=== PATIENT | male | born 1990 | race Caucasian/White ===

== ENCOUNTER 2016-08-30 20:34 | Inpatient (IN) | payer OTHER ==
[~2016-08-30] VITALS: Ht 180.3 cm; Wt 70.3 kg
--- NOTE | ~2016-08-30 | HP ---
Unit #: [id number] #: [id number] Patient: NARENDRA RODRIGUEZ [id number] [place] [address] [id number] MR#: [id number] NAME: NARENDRA RODRIGUEZ ROOM: P214 Age: 26 Sex: M Admission Date: 08/30/2016 : 1990 Attending Physician: Daniel Prescott M.D. Admitting Physician: Daniel Prescott M.D. Primary Care Physician: Primary Care Physician No HISTORY AND PHYSICAL HISTORY OF PRESENT ILLNESS Narendra is a 26-year-old male admitted on 08/30/[address] [place] [address] for detox from meth and heroin. PAST MEDICAL HISTORY None. PAST SURGICAL HISTORY None. ALLERGIES None. SOCIAL HISTORY Smokes 1 pack of cigarettes daily. Denies illegal drug use. Does report daily use of meth and heroin. He is currently single and homeless. FAMILY HISTORY Noncontributory. REVIEW OF SYSTEMS CONSTITUTIONAL: No fever or chills. HEENT: Denies any sore throat, ear pain or runny nose. CARDIOVASCULAR: Denies chest pain, irregular heart rhythm or palpitations. CHEST: Denies shortness of breath or cough. No hemoptysis. GASTROINTESTINAL: Denies nausea, vomiting, diarrhea or chronic constipation. ENDOCRINE: Denies history of increased thirst or urination. No recent significant weight loss or gain. GENITOURINARY: Denies dysuria, frequency, or hematuria. SKIN: Denies any rashes. HEMATOLOGIC: Denies history of increased bleeding or bruising. MUSCULOSKELETAL: Denies any hot, swollen joints. No generalized muscle pain. NEUROLOGIC: Denies problems with vision or speech. No frequent, severe headaches. No numbness, tingling or weakness in any extremities. Denies loss of bladder or bowel control. CURRENT MEDICATIONS None. PHYSICAL EXAMINATION GENERAL: Alert, oriented, in no acute distress. Unit #: [id number] #: [id number] Patient: NARENDRA RODRIGUEZ VITAL SIGNS: Blood pressure 117/79, heart rate 74, temperature 97.9. HEIGHT: 5 feet 11. WEIGHT: 155 pounds. SKIN: Warm and dry without rash or lesion. HEENT: Normocephalic. TMs not viewed. Oral and nasal passages clear. Conjunctivae clear. PERRLA. EOMs intact. NECK: Supple without lymphadenopathy or thyromegaly. HEART: Regular rate and rhythm without murmur. LUNGS: Clear. ABDOMEN: Soft, nontender, without masses or hepatosplenomegaly. : Not done. EXTREMITIES: No evidence of cyanosis, clubbing or edema. Moves all without focal deficit. NEUROLOGICAL: Grossly within normal limits. Cranial Nerves: II: Visual smith are intact. III, IV AND : Extraocular movements are intact. Pupils are equal, round and reactive to light. V: Facial sensation is grossly normal. VII: Facial movements and expression are normal. VIII: Auditory acuity grossly intact. IX, X: Uvula is midline. Phonation is normal. XI: Patient shrugs shoulders and turns head normally. XII: Tongue protrudes in the midline. Sensory and Motor Function: Sensory and motor sensation is grossly normal. Motor: moves all extremities well. Coordination: Gait is normal. Deep Tendon Reflexes: Intact. IMPRESSION Psychiatric admission. RECOMMENDATIONS PSYCHIATRIC: Per psychiatrist. MEDICAL: No contraindication to participate in facility's activities. MEDICAL PROGNOSIS Good. MEDICAL CONDITION Stable. Dictated by... Fay García/julienne TD: 08/31/2016 22:59 JOB #: [id number] Unit #: [id number] #: [id number] Patient: NARENDRA RODRIGUEZ HISTORY AND PHYSICAL Page 1 of 1 X INGRID MIRANDA APRN X HISTORY AND PHYSICAL
--- NOTE | ~2016-08-30 | PA ---
Unit #: [id number] #: [id number] Patient: NARENDRA RODRIGUEZ [id number] [facility] [address] [place] [address] [id number] I MR#: [id number] NAME: NARENDRA RODRIGUEZ ROOM: P214 Age: 26 Sex: M Admission Date: 08/30/2016 : 1990 Date of Assessment: 08/31/2016 Attending Physician: Daniel Prescott M.D. Admitting Physician: Daniel Prescott M.D. Primary Care Physician: Primary Care Physician No PSYCHIATRIC ASSESSMENT IDENTIFYING INFORMATION The patient is a 26-year-old white male admitted to the [address] [place] [address] Unit with increasing abuse of heroin and methamphetamine. CHIEF COMPLAINT "I'm at the end of my road." INFORMANT Patient, reliability is good. HISTORY OF PRESENT ILLNESS The patient is a 26-year-old white male with a history of opioid and methamphetamine use disorder. The patient reports that he relapsed in February of this year. Since that time, he has sought treatment at various facilities but has been unable to maintain sobriety. He states that he is "at the end of his road." He denies intravenous use. He denies use of other psychoactive substances. He denies current suicidal or homicidal ideation and denies any psychotic symptoms. He denies any symptoms of complicated withdrawal. He appears to be in moderate physical discomfort related to opioid withdrawal during today's interview. PAST PSYCHIATRIC HISTORY As discussed above. PAST MEDICAL HISTORY Noncontributory. MEDICATIONS None. ALLERGIES None. FAMILY HISTORY Noncontributory. SOCIAL HISTORY The patient is currently homeless. He is a high school graduate. He apparently had worked at [employer] but was fired from that job secondary to his substance use. MENTAL STATUS EXAMINATION Examination at this time reveals the patient to be a well-developed Unit #: [id number] #: [id number] Patient: NARENDRA RODRIGUEZ well-nourished white male appearing stated age. She is in no apparent physical distress at the time of examination. He is awake, alert, and oriented in all spheres. His mood is dysphoric. His affect constricted. Speech is generally well coherent. There are no gross deficit in memory or cognition noted. Intelligence is judged to be in the average range based on fund of knowledge. The patient is cooperative throughout the interview. He is currently endorsing no suicidal or homicidal ideation and denies any psychotic symptoms. His judgment and insight appear to be reasonably intact. ASSETS AND LIABILITIES The patient's assets are to be assessed. Liabilities: Lack of resources. DIAGNOSTIC IMPRESSION 1. Methamphetamine use disorder. 2. Opioid use disorder. TREATMENT PLAN The patient remains hospitalized for safety and stabilization. Routine detoxification protocol for opioids has been initiated. I will ask the patient's social services coordinator to see him regarding post-discharge treatment options. ESTIMATED LENGTH OF STAY 3 to 5 days. Dictated by... Daniel Prescott M.D. Terri TD: 08/31/2016 14:22 JOB #: [id number] PSYCHIATRIC ASSESSMENT Page 1 of 1 X Daniel Prescott MD X PSYCHIATRIC ASSESSMENT
--- NOTE | ~2016-08-30 | A ---
[facility] Nutrition Therapy DATE: 09/01/16 Patient: NARENDRA RODRIGUEZ Physician: ARIE Address: NO PERMANENT ADDRESS Room/Bed: [address], Zip: [place] [address] Admit Date: 08/30/16 Date of : [birth year] Height: 5 11 Weight: [phone] NUTRITIONAL ASSESSMENT: REASON: 1 point malnutrition risk score re: unintentional weight loss Admitting dx: 26 y/o male admitted for heroin/meth detox PMH: 1 ppd smoker, otherwise nothing significant Anthropometrics: Ht: 70", wt: 155 lbs, BMI: 21 (normal) Past weight 148 lbs 02/03/12 Labs: WNL Meds: Thiamine, folic acid, MVI, loperamide, phenergan/zofran, milk of mg, mag-al Assessment: Chart reviewed, events noted. See admitting dx and PMH as stated above. Pt undergoing detox from heroin/meth, is currently homeless. He is on a regular diet, MD has ordered large portion entree however this is not noted in the cardex- will add to cardex and notify [facility] to send. He is of normal weight, reports 20 lb weight loss in "months" but has had a good appetite/PO intake. Weight loss is likely due to drug abuse. See RD recs below. Dx: Unintentional weight loss r/t drug abuse AEB 1 point malnutrition risk score, pt reported 20lb weight loss in months. Intervention: Large entree Monitoring, Evaluation and Goals: 1. PO intake > 50% of meals. 2. Prevent further unintentional weight loss. Monitor: Per protocol, criteria to determine if above goals met Recommendations: 1. Continue regular diet, will send large portion entree with lunch and dinner. Encourage PO intake. 2. Please weigh q 3 days for monitoring purposes, pt reports weight loss. 3. Continue vitamins. [facility] Nutrition Therapy DATE: 09/01/16 Patient: NARENDRA RODRIGUEZ Physician: ARIE Address: NO PERMANENT ADDRESS Room/Bed: [address], Zip: [place] [address] Admit Date: 08/30/16 Date of : [birth year] Height: 5 11 Weight: [phone] 4. Please consult dietitian with any further nutritional needs. Mild nutrition risk Respectfully, Kristina Maddox RD, LD [facility] cc: client file
--- NOTE | ~2016-08-30 | DS ---
Unit #: [id number] #: [id number] Patient: NARENDRA RODRIGUEZ [id number] [facility] [address] [place] [address] [id number] MR#: [id number] NAME: NARENDRA RODRIGUEZ ROOM: [facility] Age: 26 Sex: M Admission Date: 08/30/2016 : 1990 Discharge Date: 09/01/2016 Attending Physician: Daniel Prescott M.D. Primary Care Physician: Primary Care Physician No DISCHARGE SUMMARY REASON FOR ADMISSION The patient is a 26-year-old white male, admitted with a history of opioid and methamphetamine abuse. HOSPITAL COURSE The patient was admitted to the [address] [place] [address] unit and placed on routine detoxification protocol for opioids. His stay in the hospital was a brief and uneventful one. He had little in the way of signs or symptoms of withdrawal. By 09/01/2016, he requested discharge and it was so ordered. FINAL DIAGNOSES Methamphetamine use disorder; opioid use disorder. DISPOSITION ON DISCHARGE The patient is discharged on no psychotropic or other medications. FOLLOWUP Followup will take place through the auspices of community mental health resources. PROGNOSIS The patient's prognosis is considered fair. Dictated by... Daniel Prescott M.D. CB/ellen TD: 09/01/2016 16:34 JOB #: [id number] DISCHARGE SUMMARY Page 1 of 1 X Daniel Prescott MD X DISCHARGE SUMMARY
[2016-08-31 09:39] LABS: BASOPHIL# 0.1 X10e3 (0-0.3); BASOPHIL% 0.7 % (0-2.5); EOSINOPHIL# 0.6 X10e3 (0-0.7); HEMATOCRIT 45.2 % (38.0-50.0); HEMOGLOBIN 14.8 gm/dL (13.0-16.0); LYMPHOCYTE# 3.8 X10e3 (1.0-3.5); LYMPHOCYTE% 47.2 % (17.0-45.0); MEAN CELL VOLUME 91.1 FL (83-96); MEAN CORPUSCULAR HEMOGLOBIN 29.9 PG (28-34); MEAN CORPUSCULAR HGB CONC 32.8 g/dL (30-36); MEAN PLATELET VOLUME 8.4 FL (6.5-11.5); MONOCYTE# 0.4 X10e3 (0-1.0); MONOCYTE% 5.6 % (3.0-12.0); NEUTROPHIL# 3.2 X10e3 (1.5-7.1); NEUTROPHIL% 39.5 % (40-75); PLATELET COUNT 265 X10e3 (140-420); RED BLOOD COUNT 4.95 X10e (3.90-5.60); RED CELL DISTRIBUTION WIDTH 13.6 % (11.0-15.5)
[2016-08-31 09:53] LABS: DIFF IND NO
[2016-08-31 09:57] LABS: ALBUMIN SERUM 3.8 g/dL (3.5-5.0); BILIRUBIN,TOTAL 0.6 mg/dL (0.2-2.0); BUN/CREATININE RATIO 14.44; CALCIUM SERUM 8.8 mg/dL (8.4-10.2); CREATININE SERUM 0.9 mg/dL (0.6-1.4); GLOM FILT RATE Estimated 119.1 mL/min (>60); POTASSIUM 4.2 mmol/L (3.5-5.1); PROTEIN TOTAL SERUM 6.2 g/dL (6.0-8.3)
== END 2016-09-01 16:10 | disposition home or self-care (01) | DRG 897 ==
LOC: P2S 23:57 → POF 23:57 → P2S 08-31 00:09 → POF 08-31 00:09 → P2S 09-01 16:10
PROVIDERS: Psychiatry & Neurology Psychiatry
PROC: HZ2ZZZZ Detoxification Services for Substance Abuse Treatment (ICD-10-PCS; principal; 2016-08-30)
DX: F15.20 Other stimulant dependence, uncomplicated (principal); F11.20 Opioid dependence, uncomplicated; F17.210 Nicotine dependence, cigarettes, uncomplicated; Z59.0 Homelessness
CPT/HCPCS: 80053; 85025; 86592